=== PATIENT | male | born 1960 | race Caucasian/White ===

== ENCOUNTER → 2016-04-22 | Outpatient (CLI) | payer MEDICARE ==
--- NOTE | 2016-04-22 16:10 | ST Modified Barium Swallow ---
Recommendation - Recommendations Recommendations: Recommend strategies to reduce rate/size of bites during meals and effortful swallows. May benefit from outpatient dysphagia treatment. Medical Diagnoses - Medical Diagnoses Medical Diagnosis Description & ICD-10 Code(s): dysphagia Other Medical Diagnoses/Co-Morbidities: prior TBI, asthma, IBS - ICD-10 Tx Diagnosis Coding (1) Dysphagia ICD-10 Code(s): R13.10 - DYSPHAGIA, UNSPECIFIED ST Modified Barium Swallow - General Date: 04/22/16 Referring Physician: Dr. Maya - History History obtained from: Patient Medications: Patient does not know their meds. Allergies: none - Functional Status Prior Functional Status: INDEPENDENT: feeding - previously independent Current Functional Limitations: feeding - difficulty with swallowing - Subjective Patient/caregiver goal(s): better swallow, safe swallow Cognitive-Linguistic Function: WNL - some memory deficits due to prior TBI Speech Intelligibility: WNL Current Nutritional Means: PO Current PO diet: Regular Current symptoms: Coughing, c/o Globus sensation Pain: 5/5 - stated he had a headache - Objective Assessment: Upright, Left Lateral - Food Trials Used Food trials used: Thin liquids, Pureed, Regular The patient: Was Able to Self Feed - Oral-Motor Skills Dentition: Partial Laryngeal Function: clear voicing - Assessment Oral prep: Normal Labial closure: Adequate Leakage: None Mastication: Adequate Lingual Movement: Normal - Pharyngeal Stage Initiation of Pharyngeal Stage Reflex: Delayed Reflex Delay Time (Seconds): 3 Reduced Velopharyngeal Closure: no Reduced pressure generation: Yes reduced tongue-based retraction: Yes Pre-swallow pooling in valleculae: Moderate - for regular trials Pre-Swallow pooling in pyriforms: None Reduced pharyngeal peristalsis/contraction: Yes Multiple Swallows with: Cleared w/ Dry Swallow Post-swallow residulas vallecular: Moderate Post-Swallow residuals in pyriforms: None Post-Swallow Residuals: tongue-base - for regular helga cracker trial. Reduced sensation noted. Pharyngeal Stage Comments: Premature spillage over base of tongue into valleculae seen on helga cracker trials. Residue remained after initial swallow in 2/3 trials. Second dry swallow resolved residue, however, patient seemed to have reduced sensation of residue. - Fall Risk Assessment Medications/Conditions that increase fall risks include: Antidepressants, sedatives, anti-arrhythmic, diuretic, benzodiazipenes, neuroleptics. BP regulation problems, cardiac problems, balance or gait deficits, neurological problems. Is patient considered at risk for falls: no Fall Risk Actions Taken: No action needed - Behavioral Observations During evaluation process patient: was pleasant, was cooperative Mental Status: Alert & Oriented X3 - Treatment / Educational Needs: Treatment/Education Needs: Treatment consisted of patient education on the role of the Speech Pathologist. Patient's plan of care and golas were communicated as well as scheduling and attendance policies. Recommendations for initial home program were shared. Patient demonstrated understanding and verbalized agreement. Initial home program recommendations: Recommended that patient reduce rate of consumption and use hard swallows during meals. Recommended trial outpatient dysphagia treatment as well. - Impression/Summary Laryngeal Penetration: No Tracheal Aspiration: no Effective compensatory strategies: hard swallow Patient presents with: Pharyngeal stage dysph., Mild-Moderate Risk of Aspiration: Mild Risk of nutritional compromise: WNL Risk due to: Delayed swallow for solids, residue post swallow. Able to clear with second dry swallow. - Recommendations Solid diet recommendations: Regular Liquid Diet Modification: Thin Pt/Family education and followup with MD: Yes Dysphagia therapy with RN PRIMARY CARE: dysphagia therapy Recommended techniques: Dry Swallow After Bite, Small Bites and Sips Supervision: Independent Information, Precautions and Recommendations: Patient (Written), Patient (Verbal ) - Time Total Time: 30 - Fdc Goals Fdc Goals: #1 - Patient will utilize strategies to reduce sensation of globus during meals in 4/5 attempts. - Short Term Goals Short Term Goals: #1 - Patient will complete effortful swallows and tongue base exercises for increased efficacy of swallow. - Plan of Care Patient to follow-up with referring physician: Yes Rehab potential for established goals: Good Times a week: 1 Number of weeks:: 8 Total timed minutes: 30 POC Procedures/Codes: therapeutic trials, pharyngeal exercises Strategies to optimize patient understanding include:: ongoing assessment of educational needs, implementation of educational strategies, and re-education. - - -: Thank you for the opportunity to work with this patient and his/her family. Should you have any questions about this patient's plan or progress, I can be reached at [phone]. Charge G Code? - - -: No
== END ==
LOC: RAD 08:12
PROVIDERS: ATTEND Internal Medicine Gastroenterology
DX: R13.10 Dysphagia, unspecified (principal)
CPT/HCPCS: 74230

== ENCOUNTER 2017-09-26 03:10 | Emergency (ER) | payer OTHER, MEDICARE ==
--- NOTE | 2017-09-26 03:40 | ER Document Report ---
ED General - General Chief Complaint: Head Injury with LOC Stated Complaint: FALL,HEAD LACERATION Time Seen by Provider: 09/26/17 03:40 Notes: Patient is a 57-year-old male who presents with complaint of a syncopal episode. Patient said he had to use the bathroom so he stood up. When he stood up he felt dizzy and lightheaded and passed out hitting his head on the nightstand. He denies any headache for the fall. He did not have a headache until after he hit his head. He says his headache is mild. No focal weakness or numbness. No chest pain or shortness of breath. No palpitations or feelings that his heart was racing. No recent changes in his medications. No other complaints at this time. TRAVEL OUTSIDE OF THE [place] IN LAST 30 DAYS: No - Related Data Allergies/Adverse Reactions: No Known Allergies Allergy (Unverified 09/26/17 03:15) Past Medical History - Social History Smoking Status: Never Smoker Frequency of alcohol use: None Drug Abuse: None Family History: Reviewed & Not Pertinent Review of Systems - Review of Systems Notes: My Normal Review Basic REVIEW OF SYSTEMS: CONSTITUTIONAL : Denies fever, chills, or sweats. Denies recent illness. EENT: Denies eye, ear, throat, or mouth pain or symptoms. Denies nasal or sinus congestion. CARDIOVASCULAR: Denies chest pain. RESPIRATORY: Denies cough, cold, or chest congestion. Denies shortness of breath, difficulty breathing, or wheezing. GASTROINTESTINAL: Denies abdominal pain. Denies nausea, vomiting, or diarrhea. GENITOURINARY: Denies difficulty urinating, painful urination, burning, frequency, or blood in urine. MUSCULOSKELETAL: Denies neck or back pain or joint pain or swelling. SKIN: Denies rash or skin lesions. NEUROLOGICAL: Syncope. Mild headache. Denies weakness or paralysis or loss of use of either side. Denies problems with gait or speech. Denies sensory or motor loss. ALL OTHER SYSTEMS REVIEWED AND NEGATIVE. Physical Exam - Vital signs Vitals: Resp Pulse Ox 13 100 09/26/17 03:35 09/26/17 03:35 - Notes Notes: General Appearance: Well nourished, alert, cooperative, no acute distress, no obvious discomfort. Well appearing. Vitals: reviewed, See vital signs table. Head: Small 2 cm scalp laceration that is not full-thickness on the posterior left scalp. Eyes: PERRL, EOMI, Conjuctiva clear Mouth: No decreasd moisture Throat: No tonsillar inflammation, No airway obstruction, No lymphadenopathy Neck: Supple, no neck tenderness, No stepoffs or deformities. Back: No thoracic or lumbar tenderness palpation. No step-offs or deformities. Lungs: No wheezing, No rales, No rhonci, No accessory muscle use, good air exchange bilaterally. Heart: Normal rate, Regular rythm, No murmur, no rub Abdomen: Normal BS, soft, No rigidity, No abdominal tenderness, No guarding, no rebound, no abdominal masses Extremities: strength 5/5 in all extremities, good pulses in all extremities, mild tenderness to the posterior left elbow however the patient has almost no tenderness with full flexion extension of the elbow and has no tenderness with supination and pronation of the elbow. Remainder of all 4 extremities are nontender. Skin: warm, dry, appropriate color, no rash Neuro: speech clear, oriented x 3, normal affect, responds appropriately to questions. Renal nerves II through XII are intact. Distal sensation intact. Patient moves all extremities without difficulty. Course - Re-evaluation Re-evalutation: 09/26/17 05:07 Patient looks well. There is no focal neurologic deficits. He does not have any concerning prodromal symptoms with associated syncope. He did not have any chest pain, shortness of breath, severe headache, focal weakness or numbness. CT scan is negative. Laboratory evaluation is unremarkable. Patient looks and feels well. Laceration was cleaned with peroxide and then reinforced with Dermabond. Patient to return to ER if his recurrent syncopal episodes, severe headache, vomiting, chest pain, or feels unwell. Dictation of this chart was performed using voice recognition software; therefore, there may be some unintended grammatical errors. - Vital Signs Vital signs: Temp Pulse Resp BP Pulse Ox 11 L 92/67 L 100 09/26/17 03:36 09/26/17 03:36 09/26/17 04:03 - Laboratory Result Diagrams: 09/26/17 03:55 09/26/17 03:55 Laboratory results interpreted by me: 09/26/17 09/26/17 03:55 03:55 RBC 3.95 L Hgb 11.4 L Hct 32.5 L RDW 14.5 H Sodium 145.7 H - EKG Interpretation by Me Additional EKG results interpreted by me: 09/26/17 03:40 EKG is reviewed and interpreted by me. EKG shows sinus rhythm with a rate of [address] segment elevation or depression. No ischemic T-wave inversions. AR interval, QRS duration, QTc intervals are within normal range. No old EKG available for comparison. Procedures - Laceration/Wound Repair Head Wound length (cm): 2 Wound's Depth, Shape: Superficial Laceration pre-procedure: Other - hydrogen peroxide Wound explored: Clean Wound Repaired With: Dermabond Complications: No Discharge - Discharge Clinical Impression: Laceration of scalp Qualifiers: Encounter type: initial encounter Qualified Code(s): S01.01XA - Laceration without foreign body of scalp, initial encounter Syncope Qualifiers: Syncope type: unspecified Qualified Code(s): R55 - Syncope and collapse Condition: Good Disposition: HOME, SELF-CARE Additional Instructions: Please take your time when you stand up. do not stand up too quickly. Please return to the ER if you have recurrent passing out, fevers, severe headaches, vomiting, chest pain, or feel unwell. Referrals: AMARI KHAN MD [NO LOCAL MD] - Follow up in 3-5 days
[2017-09-26 04:14] LABS: ABSOLUTE BASOPHILS # (AUTO) 0.1 10^3/uL (0.0-0.2); ABSOLUTE EOSINOPHILS # (AUTO) 0.1 10^3/uL (0.0-0.6); ABSOLUTE LYMPHOCYTES (AUTO) 1.9 10^3/uL (0.5-4.7); ABSOLUTE MONOCYTES (AUTO) 0.6 10^3/uL (0.1-1.4); ABSOLUTE NEUT (AUTO) 3.7 10^3/uL (1.7-8.2); BASOPHILS % (AUTO) 1.7 % (0-2); EOSINOPHILS % (AUTO) 2.1 % (0-6); HEMATOCRIT 32.5 % (37.9-51.0); HEMOGLOBIN 11.4 g/dL (13.5-17.0); LYMPHOCYTES % (AUTO) 29.1 % (13-45); MEAN CORPUSCULAR HEMOGLOBIN 28.8 pg (27.0-33.4); MEAN CORPUSCULAR HGB CONC 34.9 g/dL (32.0-36.0); MEAN CORPUSCULAR VOLUME 82 fl (80-97); MONOCYTES % (AUTO) 8.9 % (3-13); PLATELET COUNT 251 10^3/uL (150-450); RED BLOOD COUNT 3.95 10^6/uL (4.35-5.55); RED CELL DISTRIBUTION WIDTH 14.5 % (11.5-14.0); SEGMENTED NEUTROPHILS % (AUTO) 58.2 % (42-78); TOTAL CELLS COUNTED % (AUTO) 100 %; WHITE BLOOD COUNT 6.4 10^3/uL (4.0-10.5)
[2017-09-26 04:31] LABS: ANION GAP 12 (5-19); BLOOD UREA NITROGEN 16 mg/dL (7-20); CALCIUM 9.1 mg/dL (8.4-10.2); CARBON DIOXIDE 27 mmol/L (22-30); CHLORIDE 107 mmol/L (98-107); GLUCOSE 94 mg/dL (75-110); POTASSIUM 3.6 mmol/L (3.6-5.0); SODIUM 145.7 mmol/L (137-145)
--- NOTE | 2017-09-26 04:34 | RADIOLOGY REPORT (SQ) ---
EXAM DESCRIPTION: CT HEAD WITHOUT IV CONTRAST COMPLETED DATE/TME: 09/26/2017 03:44 CLINICAL HISTORY: syncope, posterior scalp lac COMPARISON: None available TECHNIQUE: Axial CT of the head obtained from the skull apex to the skull base without contrast. FINDINGS: No acute intracranial hemorrhage identified. No mass, mass effect, shift of the midline, abnormal extra-axial fluid collection or CT evidence of acute ischemic change identified. The ventricular system is unremarkable. No acute abnormalities of the supratentorial white matter, basal ganglia, cerebellum, or brainstem. The visualized paranasal sinuses and the mastoids are clear. No skull fracture identified. Visualized orbits and globes are unremarkable. DLP:1096.9 mGy-cm IMPRESSION: 1. No acute intracranial abnormality identified. This exam was performed according to our departmental dose-optimization program, which includes automated exposure control, adjustment of the mA and/or kV according to patient size and/or use of iterative reconstruction technique.
[2017-09-26 05:45] VITALS: BP 112/77
--- NOTE | 2017-09-26 09:04 | EKG REPORT ---
SEVERITY:- NORMAL ECG - SINUS RHYTHM : Confirmed by: Kody Bateman 26-Sep-2017 09:03:35
== END 2017-09-26 05:48 | disposition home or self-care (01) ==
LOC: ER 03:10
DX: S01.01XA Laceration without foreign body of scalp, initial encounter (principal); R51 Headache; W18.39XA Other fall on same level, initial encounter; Y93.89 Activity, other specified; Y92.003 Bedroom of unspecified non-institutional (private) residence as the place of occurrence of the external cause; R55 Syncope and collapse
CPT/HCPCS: 36415; 70450; 80048; 84484; 85025; 93005; 93010; 99284